=== PATIENT | female | born 1990 | race Caucasian/White ===

== ENCOUNTER → 2016-04-23 | Outpatient (CLI) | payer BC ==
[2016-04-23 18:20] LABS: BLOOD UREA NITROGEN 13 mg/dl (7-18); BUN/CREATININE RATIO 16.2 (10-20); CALCIUM 9.2 mg/dl (8.5-10.1); CARBON DIOXIDE 28 mmol/L (21-32); CHLORIDE 101 mmol/L (98-107); CREATININE 0.78 mg/dl (0.60-1.20); GLUCOSE 80 mg/dl (70-99); POTASSIUM 3.9 mmol/L (3.5-5.1); SODIUM 136 mmol/L (136-145)
[2016-04-23 18:23] LABS: CHOLESTEROL 167 mg/dl (0-200); CHOLESTEROL/HDL RATIO 2.1; HDL CHOLESTEROL 78 mg/dl; LDL CHOLESTEROL CALCULATED 74 mg/dl; TRIGLYCERIDES 75 mg/dl (0-150); VERY LOW DENSITY LIPOPROT CALC 15 mg/dl
== END | disposition home or self-care (01) ==
LOC: C.LABPVFM 13:31
PROVIDERS: ATTEND Family Medicine
DX: Z13.1 Encounter for screening for diabetes mellitus (principal)

== ENCOUNTER → 2017-06-21 | Outpatient (CLI) | payer OTHER | END | disposition home or self-care (01) | LOC: C.LABSPEC 13:17 | PROVIDERS: ATTEND Obstetrics & Gynecology | DX: Z01.419 Encounter for gynecological examination (general) (routine) without abnormal findings (principal) ==

== ENCOUNTER → 2017-06-21 | Outpatient (CLI) | payer OTHER | END | disposition home or self-care (01) | LOC: C.PAPS 13:58 | PROVIDERS: ATTEND Obstetrics & Gynecology | DX: Z01.419 Encounter for gynecological examination (general) (routine) without abnormal findings (principal) ==

== ENCOUNTER → 2017-07-07 | Outpatient (CLI) | payer OTHER ==
--- NOTE | 2017-07-09 07:48 | MAMMOGRAPHY REPORT ---
ULTRASOUND OF BOTH BREASTS: 07/07/2017 COMPARISON: No prior exams were available for comparison. Targeted ultrasound was performed in each breast, with particular attention to the lateral right breast and inferior left breast in the areas of most prominent lumps pointed out by the patient. FINDINGS: Targeted ultrasound was performed in each breast, with particular attention to the lateral right breast and inferior left breast in the areas of most prominent lumps pointed out by the patien t. Throughout the lateral right breast 6:00 through 10:00 axes, sonographically normal heterogeneous ech otexture tissue is identified without evidence of a suspicious solid or cystic mass. No focal skin t hickening or drainable fluid collection. Throughout the inferior left breast including the lower outer and lower inner quadrants, sonographica lly normal tissue is seen without a suspicious solid or cystic mass. IMPRESSION: ACR BI-RADS CATEGORY 2: BENIGN 1. There is no evidence of a suspicious sonographic abnormality or evidence of malignancy in the are as of lumps palpated by the patient's provider. Therefore, continued clinical follow-up is recommend ed, as biopsy of a clinically suspicious mass should not be precluded by negative imaging. 2. Based on the patient's strong family history of breast cancer = mother diagnosed at age 37, would recommend beginning annual screening mammography and screening breast MRI beginning at age 29. These results and recommendations were discussed with the patient at the time of the exam. Daria Garcia M.D. ay/:07/07/2017 15:16:09 [employer]: Mela GODINEZ)([place]), [facility] letter sent: Normal 1/2 BI-RADS Code: ACR BI-RADS Category 2: Benign
== END | disposition home or self-care (01) ==
LOC: C.MAMM 13:58
PROVIDERS: ATTEND Obstetrics & Gynecology
DX: N63.10 Unspecified lump in the right breast, unspecified quadrant (principal); N63.20 Unspecified lump in the left breast, unspecified quadrant; Z80.3 Family history of malignant neoplasm of breast